=== PATIENT | female | born 2000 | race Caucasian/White ===

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

== ENCOUNTER 2022-07-24 12:49 | Emergency (ER) | payer BC, MEDICAID ==
[~2022-07-24 12:49] MED LIST changes: +Benzocaine/Menthol TP; +FERR325T18 PO; +IBUP-844 PO
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
[2022-07-24] MEDS ORDERED: IBUPROFEN 600 MG (MOTRIN) TAB PO ONE (13:15)
--- NOTE | 2022-07-24 13:17 | Diagnostic Imaging Report ---
History: Right shoulder pain after injury TECHNIQUE: 2 views of the right shoulder COMPARISON: None FINDINGS: No acute fracture or dislocation is seen in the right shoulder. Alignment appears normal. Joint spaces are preserved. IMPRESSION: 1. No acute osseous abnormality is seen in the right shoulder. Dictated by: Dictated on workstation # [id number]
[2022-07-24] MEDS ORDERED: IBUP-1773 PO (13:46)
[2022-07-24 14:15] VITALS: BP 128/88
== END 2022-07-24 14:15 | disposition home or self-care (01) ==
LOC: EDUNIT# 12:49 → ER 12:54
DX: S43.401A Unspecified sprain of right shoulder joint, initial encounter (principal); F17.210 Nicotine dependence, cigarettes, uncomplicated; Z28.310 Unvaccinated for COVID-19; Z91.040 Latex allergy status; X50.1XXA Overexertion from prolonged static or awkward postures, initial encounter
CPT/HCPCS: 73030

== ENCOUNTER 2023-02-22 20:36 | Emergency (ER) | payer MEDICAID ==
[~2023-02-22] VITALS: Ht 165 cm; Wt 77.1 kg
[~2023-02-22 20:36] MED LIST changes: +IBUP-1773 PO
[2023-02-22 20:45] VITALS: BP 111/63
--- NOTE | 2023-02-22 21:23 | Diagnostic Imaging Report ---
EXAMINATION: Left ankle radiographs, 3 views. COMPARISON: None. HISTORY: 22-year-old female, left ankle pain. Injury. FINDINGS: There is no identified acute fracture. There is no tibiotalar joint effusion. The alignment of the ankle mortise is unremarkable. Joint spaces are well preserved. There is no radiopaque foreign body. IMPRESSION: Unremarkable radiographs of the left ankle. Dictated by: Dictated on workstation # [id number]
--- NOTE | 2023-02-22 21:25 | ED Lower Extremity ---
General Chief Complaint: Lower Extremity Stated Complaint: LEFT ANKLE INJURY Nursing Triage Note: PATIENT TO ER VIA POV W C/O LEFT ANKLE PAIN. PATIENT REPORTS SHE WAS PLAYING SOFTBALL. SOFTBALL WAS HIT INTO HER ANKLE. APPROX 2 HRS AGO. PATIENT TRIED TO "WALK IT OFF" AND IT WASN'T GETTING ANY BETTER. Source: patient History of Present Illness Date Seen by Provider: Feb 22, 2023 Allergies and Home Medications Allergies Coded Allergies: latex (Verified Allergy, Unknown, 07/19/18) Patient Home Medication List Ferrous Sulfate (Ferrous Sulfate) 325 Mg Tablet, 325 MG PO DAILY@0800 Prescribed by: ARMANI JEREZ on 07/21/18919 Ibuprofen (Ibu) 600 Mg Tablet, 600 MG PO Q6H Prescribed by: ARMANI JEREZ on 07/21/18 09 Ibuprofen (Ibuprofen) 600 Mg Tablet, 600 MG PO Q6H PRN for PAIN-MILD Prescribed by: Jeff Schreiber on 07/24/22 1346 Vit W-Ca,Fe,FA(<1 mg) ( Vitamins) 1 Each Tablet, 1 EACH PO DAILY, (Reported) Entered as Reported by: MELIDA CHILDERS on 07/03/18 0056 [Benzocaine/Menthol] 56 ML AEROSOL, 0 ML TP UD PRN for PAIN- SEE INSTRUCTIONS Prescribed by: ARMANI JEREZ on 07/21/18919 Past Euogoon-Scybzr-Jatrpn Hx Patient Social History Tobacco Use?: No Substance use?: No Alcohol Use?: No Immunizations Up To Date Tetanus Booster (TDap): Less than 5yrs Seasonal Allergies Seasonal Allergies: No Past Medical History Surgery/Hospitalization HX: D&C Surgeries: No Respiratory: No Cardiac: No Neurological: No Genitourinary: No Gastrointestinal: No Musculoskeletal: No Endocrine: No HEENT: No Cancer: No Psychosocial: No Integumentary: No Blood Disorders: No Family Medical History Patient reports no known family medical history. Physical Exam Vital Signs Vital Signs - First Documented 02/22/23 20:45 Temp 37.1 Pulse 114 Resp 18 B/P (MAP) 111/63 (79) Pulse Ox 98 O2 Delivery Room Air Capillary Refill : Less Than 3 Seconds Height, Weight, BMI Height: 5'5.00" Weight: 187lbs. 0.0oz. [id number]; 28.00 BMI Method:Stated Progress/Results/Core Measures Results/Orders My Orders Orders - SHEA MONTIEL Beni DO Ankle, Left, 3 Views (02/22/23 20:57) Vital Signs/I&O 02/22/23 20:45 Temp 37.1 Pulse 114 Resp 18 B/P (MAP) 111/63 (79) Pulse Ox 98 O2 Delivery Room Air Blood Pressure Mean: 79 Diagnostic Imaging Comments XRAYS LEFT ANKLE--PER RADIOLOGIST REPORT AT 2124 FINDINGS: There is no identified acute fracture. There is no tibiotalar joint effusion. The alignment of the ankle mortise is unremarkable. Joint spaces are well preserved. There is no radiopaque foreign body. IMPRESSION: Unremarkable radiographs of the left ankle. Reviewed: Reviewed by Me Departure Impression Primary Impression: Contusion of left ankle, initial encounter Disposition: HOME, SELF-CARE Condition: Stable Departure-Patient Inst. Decision time for Depature: 21:25 Referrals: NO,LOCAL PHYSICIAN (PCP/Family) Primary Care Physician Patient Instructions: Contusion (DC), How to Use an Elastic Bandage, Walking Boot Add. Discharge Instructions: ICE TO AREA AT 20 MINUTE INTERVALS FAISAL WRAP AND WALKING BOOT FOR COMFORT ELEVATE FOOT MUCH POSSIBLE FOLLOW UP WITH [facility] IN 1 WEEK IF NO BETTER All discharge instructions reviewed with patient and/or family. Voiced understanding. Scripts Naproxen (Naproxen) 500 Mg Tablet. 500 MG PO BID, #20 TAB Prov: SHEA MONTIEL DO 02/22/23 SHEA MONTIEL DO Feb 22, 2023 21:25
[2023-02-22] MEDS ORDERED: RX-NAPROXEN (NAPROSYN) 250 MG TAB PPK#4 PO STA (21:29)
[2023-02-22] MEDS ORDERED: NAPR500T8 PO (21:31)
== END 2023-02-22 21:50 | disposition home or self-care (01) ==
LOC: EDUNIT# 20:36 → ER 20:38
DX: S90.02XA Contusion of left ankle, initial encounter (principal); Z91.040 Latex allergy status; Z28.310 Unvaccinated for COVID-19; W21.07XA Struck by softball, initial encounter; Y92.320 Baseball field as the place of occurrence of the external cause; Y93.64 Activity, baseball
CPT/HCPCS: 73610

== ENCOUNTER 2023-03-23 07:21 | Emergency (ER) | payer MEDICAID ==
[~2023-03-23] VITALS: Ht 167 cm; Wt 68.0 kg
[~2023-03-23 07:21] MED LIST changes: +NAPR500T8 PO
--- NOTE | 2023-03-23 07:36 | ED Lower Extremity ---
General Chief Complaint: Lower Extremity Stated Complaint: LT ANKLE INJ | Nursing Triage Note: PT AMB W LIMP TO RM 5 PT CO OF PAIN 7/10 IN L ANKLE AREA. TWISTED THIS AM, PT STATES WAS HIT IN ANKLE APPROX MONTH AGO W SOFTBALL. Source: patient Exam Limitations: no limitations History of Present Illness Date Seen by Provider: Mar 23, 2023 Time Seen by Provider: 07:24 Initial Comments 23-year-old female presents for left medial ankle pain. She states she was walking in the kitchen this morning and twisted it reinjuring it from the initial injury 1 month ago when she was hit with a softball. She was evaluated at that time and x-rays were negative. She was advised to wear brace that she was given and follow-up however she never did either of those things. All other systems reviewed and negative except documented per HPI. Voice recognition software was used to help create this chart Allergies and Home Medications Allergies Coded Allergies: latex (Verified Allergy, Unknown, 07/19/18) Patient Home Medication List Home Medication List Reviewed: Yes Ferrous Sulfate (Ferrous Sulfate) 325 Mg Tablet, 325 MG PO DAILY@0800 Prescribed by: ARMANI JEREZ on 07/21/18919 Ibuprofen (Ibu) 600 Mg Tablet, 600 MG PO Q6H Prescribed by: ARMANI JEREZ on 07/21/18919 Ibuprofen (Ibuprofen) 600 Mg Tablet, 600 MG PO Q6H PRN for PAIN-MILD Prescribed by: Jeff Schreiber on 07/24/22 1346 Naproxen (Naproxen) 500 Mg Tablet.dr, 500 MG PO BID Prescribed by: SHEA MONTIEL on 02/22/23 2131 Vit W-Ca,Fe,FA(<1 mg) ( Vitamins) 1 Each Tablet, 1 EACH PO DAILY, (Reported) Entered as Reported by: MELIDA CHILDERS on 07/03/18 0056 [Benzocaine/Menthol] 56 ML AEROSOL, 0 ML TP UD PRN for PAIN- SEE INSTRUCTIONS Prescribed by: ARMANI JEREZ on 07/21/18919 Review of Systems Constitutional: see HPI Past Lfkuldk-Wtceev-Lczxpw Hx Patient Social History Tobacco Use?: Yes Tobacco type used: Cigarettes Smoking Status: Current Everyday Smoker Substance use?: No Alcohol Use?: Yes Alcohol Frequency: Once in a while Pt feels they are or have been: No Immunizations Up To Date Tetanus Booster (TDap): Less than 5yrs Seasonal Allergies Seasonal Allergies: No Past Medical History Surgery/Hospitalization HX: D&C Surgeries: No Respiratory: No Cardiac: No Neurological: No Genitourinary: No Gastrointestinal: No Musculoskeletal: No Endocrine: No HEENT: No Cancer: No Psychosocial: No Integumentary: No Blood Disorders: No Family Medical History Patient reports no known family medical history. Physical Exam Vital Signs Vital Signs - First Documented 03/23/23 07:25 Temp 36.2 Pulse 93 Resp 16 B/P (MAP) 133/79 (97) Pulse Ox 100 Capillary Refill : Less Than 3 Seconds Height, Weight, BMI Height: 5'5.00" Weight: 187lbs. 0.0oz. [id number]; 24.00 BMI Method:Stated General Appearance: WD/WN, no apparent distress Legs: bilateral leg non-tender, bilateral leg normal inspection, bilateral leg normal range of motion Knees: bilateral knee non-tender, bilateral knee normal inspection, bilateral knee normal range of motion Ankles: left ankle swelling (Swelling the medial aspect of the left ankle. This is just above the medial malleolus. Neurovascular motor and sensory i ntact.) Progress/Results/Core Measures Results/Orders My Orders Orders - XIOMY CALERO DO Ankle, Left, 3 Views (03/23/23 07:33) Vital Signs/I&O 03/23/23 07:25 Temp 36.2 Pulse 93 Resp 16 B/P (MAP) 133/79 (97) Pulse Ox 100 Blood Pressure Mean: 97 Departure Communication (Admissions) Have independently reviewed the ankle x-ray and it is negative. She has a brace at home already. Conservative care with bracing, weightbearing as tolerated and orthopedic follow-up. Impression Primary Impression: Left ankle pain Qualified Codes: M25.572 - Pain in left ankle and joints of left foot Disposition: HOME, SELF-CARE Condition: Stable Departure-Patient Inst. Referrals: NO,LOCAL PHYSICIAN (PCP) Primary Care Physician YANELY CAMPBELL MD Patient Instructions: Ankle Sprain ED Add. Discharge Instructions: Use the ankle brace previously provided. Ice the area as necessary. Bear weight as tolerated. Follow-up with orthopedics for further evaluation and treatment recommendations. All discharge instructions reviewed with patient and/or family. Voiced understanding. XIOMY CALERO DO Mar 23, 2023 07:36
[2023-03-23 08:00] VITALS: BP 133/79
--- NOTE | 2023-03-23 08:45 | Diagnostic Imaging Report ---
INDICATION: Pain COMPARISON: 02/22/2023 TECHNIQUE: 3 radiographs of the left ankle dated 03/23/2023. FINDINGS: No acute fracture or dislocation. No destructive osseous process. The talar dome is unremarkable. Ankle mortise is symmetric. No suspicious radiopaque foreign body. IMPRESSION: No acute osseous abnormality. Dictated by: Dictated on workstation # [id number]
== END 2023-03-23 07:59 | disposition home or self-care (01) ==
LOC: EDUNIT# 07:21 → ER 07:24
DX: M25.572 Pain in left ankle and joints of left foot (principal); M25.472 Effusion, left ankle; F17.210 Nicotine dependence, cigarettes, uncomplicated; Z91.040 Latex allergy status; X50.1XXA Overexertion from prolonged static or awkward postures, initial encounter; Y93.01 Activity, walking, marching and hiking; Y92.000 Kitchen of unspecified non-institutional (private) residence as the place of occurrence of the external cause
CPT/HCPCS: 73610; 99282; L4350